=== PATIENT | male | born 1965 | race Two or more races ===

== ENCOUNTER 2016-08-23 13:28 | Emergency (ER) | payer OTHER ==
[~2016-08-23 13:28] MED LIST: CARB200T PO; LEVE500T6 PO; NABU500T PO; TIZA4TAB PO
[2016-08-23 14:36] LABS: BASO # 0.2 x10^3/uL (0.0-0.2); BASO % 1 % (0-3); EOS % 1 % (0-3); HEMATOCRIT 44.1 % (39.0-53.0); HEMOGLOBIN 14.9 g/dL (13.0-17.5); LYMPH # 3.7 x10^3/uL (1.0-4.8); LYMPH % 26 % (24-48); MEAN CORPUSCULAR HEMOGLOBIN 32 pg (25-35); MEAN CORPUSCULAR HGB CONC 34 g/dL (31-37); MEAN CORPUSCULAR VOLUME 95 fL (79-100); MONO % 4 % (0-9); NEUT % 68 % (31-73); PLATELET COUNT 227 x10^3/uL (140-400); RED BLOOD COUNT 4.66 x10^6/uL (4.30-5.70); RED CELL DISTRIBUTION WIDTH 13.4 % (11.5-14.5); WHITE BLOOD COUNT 14.1 x10^3/uL (4.0-11.0)
[2016-08-23 14:53] LABS: GFR 79.1; POTASSIUM 3.7 mmol/L (3.5-5.1)
[2016-08-23 14:58] LABS: ALBUMIN 3.4 g/dL (3.4-5.0); ALBUMIN/GLOBULIN RATIO 0.9 (1.0-1.7); TOTAL BILIRUBIN 0.3 mg/dL (0.2-1.0); TOTAL PROTEIN 7.2 g/dL (6.4-8.2)
[2016-08-23 15:00] LABS: BILIRUBIN,URINE NEGATIVE (NEG); GLUCOSE,URINE NEGATIVE (NEG); NITRITE,URINE NEGATIVE (NEG); PH,URINE 6.5; PROTEIN,URINE NEGATIVE (NEG-TRACE); UROBILINOGEN,URINE 0.2 mg/dL (0.2 mg/dL)
[2016-08-23 15:07] LABS: BACTERIA,URINE 0 /HPF (0-FEW); WBC,URINE OCC /HPF (0-4)
[2016-08-23] MEDS ORDERED: MORPHINE SULFATE 10 MG/ML VIAL. IM ONE (15:45)
[2016-08-23] MEDS ORDERED: ONDANSETRON ODT 4 MG TAB.RAPDIS. PO ONE (15:45)
--- NOTE | 2016-08-23 16:04 | EKG ---
[facility] [address] [place] [address] Test Date: 2016-08-23 Test Time: 14:02:39 Pat Name: LEO MCLAUGHLIN Department: Room: Gender: M [employer]: : [id number] Requested By: LYN GARY Order Number: [id number] Reading MD: Elizabeth Daniels Measurements Intervals [place] Rate: 79 P: 52 MT: 150 QRS: 58 QRSD: 90 T: 64 QT: 352 QTc: 409 Interpretive Statements SINUS RHYTH NORMAL ECG Electronically Signed On 08-23-2016 21:09:08 CDT by Elizabeth Daniels
[2016-08-23 16:27] VITALS: BP 130/63
[2016-08-23] MEDS ORDERED: oxyCODONE/APAP 10/325 1 TAB TABLET PO ONE (16:30)
--- NOTE | 2016-08-23 18:11 | ED.ADGEN ---
Past Medical History Past Medical History: Seizure, Other Additional Past Medical Histor: sleep disorder Past Surgical History: Other Additional Past Surgical Histo: right knee Alcohol Use: None Drug Use: None Adult General Chief Complaint Chief Complaint: DIZZY/LIGHT HEADED HPI HPI Patient is a 51 year old male with history of chronic back pain who presents with increased left lower back pain the past 2 days. Patient has currently been seeing a work comp physician for workplace back injury. Been working on a limited basis, 2 days ago, the patient reports sudden pain while turning and lifting. Pain is described as moderate to severe. It is nonradiating. It is not associated with bowel or bladder incontinence, extremity weakness or loss of sensation. Patient does not have abdominal pain, urinary frequency hematuria or flank pain. No nausea vomiting or sweats. Patient does report dizziness which he states occurs every time. Back pain. Review of Systems Review of Systems Review symptoms as per history of present illness. All other review symptoms are negative. Current Medications Current Medications Current Medications Medications (Trade) Dose Ordered Sig/Sarbjit Start Time Stop Time Status Last Admin Dose Admin Morphine Sulfate 10 mg 1X ONCE 08/23/16 15:45 08/23/16 15:46 DC 08/23/16 15:52 10 MG Ondansetron HCl (Zofran Odt) 4 mg 1X ONCE 08/23/16 15:45 08/23/16 15:46 DC 08/23/16 15:52 4 MG Oxycodone/ Acetaminophen (Percocet 10/325) 1 tab 1X ONCE 08/23/16 16:30 08/23/16 16:31 DC 08/23/16 16:26 1 TAB Allergies Allergies Allergies Coded Allergies Type Severity Reaction Last Updated Verified No Known Drug Allergies 07/16/15 No Physical Exam Physical Exam Constitutional: Well developed, well nourished, moderate discomfort secondary pain. HENT: Normocephalic, atraumatic, bilateral external ears normal, oropharynx moist, no oral exudates, nose normal. Eyes: PERRLA, EOMI. Neck: Normal range of motion. Cardiovascular:Heart rate regular rhythm, no murmur. Lungs & Thorax: Bilateral breath sounds clear to auscultation. Abdomen: Bowel sounds normal, soft, no tenderness. Skin: Warm. Back: No line tenderness. Left lower lumbar paravertebral pain, tenderness. Pain reproduces with palpation, and trunk rotation. Extremities: Negative SLR's. Neurologic: Alert with fluent speech, extremities, no motor weakness or loss of sensation. Reflexes 1+ and symmetric. Current Patient Data Vital Signs Vital Signs Date Time Temp Pulse Resp B/P (MAP) Pulse Ox O2 Delivery O2 Flow Rate FiO2 08/23/16 16:27 18 130/63 (85) 98 Room Air 08/23/16 15:51 67 08/23/16 13:59 99.2 99.2 Lab Values Laboratory Tests Test 08/23/16 13:59 08/23/16 14:20 Urine Collection Type Void Urine Color Yellow Urine Clarity Clear Urine pH 6.5 Urine Specific [place] 1.020 Urine Protein Negative mg/dL (NEG-TRACE) Urine Glucose (UA) Negative mg/dL (NEG) Urine Ketones (Stick) Negative mg/dL (NEG) Urine Blood Small (NEG) Urine Nitrite Negative (NEG) Urine Bilirubin Negative (NEG) Urine Urobilinogen Dipstick 0.2 mg/dL (0.2 mg/dL) Urine Leukocyte Esterase Negative (NEG) Urine RBC 3-5 /HPF (0-2) Urine WBC Occ /HPF (0-4) Urine Bacteria 0 /HPF (0-FEW) Urine Hyaline Casts Few /HPF Urine Mucus Mod /LPF White Blood Count 14.1 x10^3/uL (4.0-11.0) H Red Blood Count 4.66 x10^6/uL (4.30-5.70) Hemoglobin 14.9 g/dL (13.0-17.5) Hematocrit 44.1 % (39.0-53.0) Mean Corpuscular Volume 95 fL (79-100) Mean Corpuscular Hemoglobin 32 pg (25-35) Mean Corpuscular Hemoglobin Concent 34 g/dL (31-37) Red Cell Distribution Width 13.4 % (11.5-14.5) Platelet Count 227 x10^3/uL (140-400) Neutrophils (%) (Auto) 68 % (31-73) Lymphocytes (%) (Auto) 26 % (24-48) Monocytes (%) (Auto) 4 % (0-9) Eosinophils (%) (Auto) 1 % (0-3) Basophils (%) (Auto) 1 % (0-3) Neutrophils # (Auto) 9.6 x10^3uL (1.8-7.7) H Lymphocytes # (Auto) 3.7 x10^3/uL (1.0-4.8) Monocytes # (Auto) 0.5 x10^3/uL (0.0-1.1) Eosinophils # (Auto) 0.1 x10^3/uL (0.0-0.7) Basophils # (Auto) 0.2 x10^3/uL (0.0-0.2) Sodium Level 137 mmol/L (136-145) Potassium Level 3.7 mmol/L (3.5-5.1) Chloride Level 101 mmol/L (98-107) Carbon Dioxide Level 28 mmol/L (21-32) Anion Gap 8 (6-14) Blood Urea Nitrogen 14 mg/dL (8-26) Creatinine 1.0 mg/dL (0.7-1.3) Estimated GFR (Cockcroft-Gault) 79.1 BUN/Creatinine Ratio 14 (6-20) Glucose Level 106 mg/dL (70-99) H Calcium Level 9.0 mg/dL (8.5-10.1) Total Bilirubin 0.3 mg/dL (0.2-1.0) Aspartate Amino Transferase (AST) 16 U/L (15-37) Alanine Aminotransferase (ALT) 23 U/L (16-63) Alkaline Phosphatase 119 U/L (46-116) H Total Protein 7.2 g/dL (6.4-8.2) Albumin 3.4 g/dL (3.4-5.0) Albumin/Globulin Ratio 0.9 (1.0-1.7) L Laboratory Tests 08/23/16 14:20 Laboratory Tests 08/23/16 14:20 EKG EKG [] Radiology/Procedures Radiology/Procedures 2016 MRI of her spine reviewed.] Course & Med Decision Making Course & Med Decision Making Pertinent Labs and Imaging studies reviewed. (See chart for details) [Acute on chronic back pain. Symptoms addressed improved in the ED. No focal neurologic deficits. No urinary or bowel incontinence. No evidence of urinary tract infection.. Patient currently has a work comp doctor caring for this back pain. Will defer further evaluation and treatment to patient's physician. Patient noted to have elevated white blood cell count and thrombocytopenia of questionable significance to be followed by PCP. Return precautions reviewed. ] Dragon Disclaimer Dragon Disclaimer This electronic medical record was generated, in whole or in part, using a voice recognition dictation system. LYN GARY DO Aug 23, 2016 18:11
== END 2016-08-23 16:35 | disposition home or self-care (01) ==
LOC: ER 13:28
DX: M54.5 Low back pain (principal); G89.29 Other chronic pain; G47.9 Sleep disorder, unspecified; R00.2 Palpitations
CPT/HCPCS: 36415; 80053; 81001; 85027; 93005; 96372; 99285; J2270; Q0162

== ENCOUNTER → 2016-09-28 | Outpatient (CLI) | payer OTHER ==
[2016-09-30 17:14] LABS: LAMOTRIGINE LEVEL 6.6 ug/mL (2.0-20.0)
[2016-10-01 10:20] LABS: LEVETIRACETAM 55.8 ug/mL (10.0-40.0)
== END | disposition home or self-care (01) ==
LOC: LAB 16:19
PROVIDERS: ATTEND Psychiatry & Neurology Neurology with Special Qualifications in Child Neurology
DX: G40.209 Localization-related (focal) (partial) symptomatic epilepsy and epileptic syndromes with complex partial seizures, not intractable, without status epilepticus (principal)
CPT/HCPCS: 36415; 80175; 80177

== ENCOUNTER → 2017-09-23 | Outpatient (CLI) | payer OTHER ==
[2017-09-23 11:51] LABS: ADD MAN DIFF? NO
[2017-09-23 12:00] LABS: BASO # 0.2 x10^3/uL (0.0-0.2); BASO % 1 % (0-3); EOS # 0.2 x10^3/uL (0.0-0.7); EOS % 2 % (0-3); HEMATOCRIT 44.9 % (39.0-53.0); HEMOGLOBIN 15.5 g/dL (13.0-17.5); LYMPH # 3.7 x10^3/uL (1.0-4.8); LYMPH % 32 % (24-48); MEAN CORPUSCULAR HEMOGLOBIN 32 pg (25-35); MEAN CORPUSCULAR HGB CONC 35 g/dL (31-37); MEAN CORPUSCULAR VOLUME 94 fL (79-100); MONO # 0.5 x10^3/uL (0.0-1.1); MONO % 4 % (0-9); NEUT % 61 % (31-73); PLATELET COUNT 242 x10^3/uL (140-400); RED BLOOD COUNT 4.78 x10^6/uL (4.30-5.70); RED CELL DISTRIBUTION WIDTH 13.7 % (11.5-14.5); WHITE BLOOD COUNT 11.6 x10^3/uL (4.0-11.0)
[2017-09-23 12:14] LABS: ALBUMIN 3.5 g/dL (3.4-5.0); ALK PHOS 143 U/L (46-116); ALT (SGPT) 31 U/L (16-63); AST (SGOT) 19 U/L (15-37); DIRECT BILIRUBIN 0.1 mg/dL (0.0-0.2); TOTAL BILIRUBIN 0.3 mg/dL (0.2-1.0); TOTAL PROTEIN 7.5 g/dL (6.4-8.2)
[2017-09-26 09:15] LABS: LEVETIRACETAM 33.3 ug/mL (10.0-40.0)
[2017-09-27 10:25] LABS: LAMOTRIGINE LEVEL 4.8 ug/mL (2.0-20.0)
== END | disposition home or self-care (01) ==
LOC: LAB 11:35
DX: G40.209 Localization-related (focal) (partial) symptomatic epilepsy and epileptic syndromes with complex partial seizures, not intractable, without status epilepticus (principal); Z87.891 Personal history of nicotine dependence
CPT/HCPCS: 36415; 80076; 80175; 80177; 85025